=== PATIENT | female | born 1950 | race Caucasian/White ===

== ENCOUNTER → 2016-07-30 | Outpatient (CLI) | payer MEDICARE, OTHER ==
[~2016-07-30] MED LIST: CENTRUM SILVER1 EAC4 PO; CITRACAL+D(315M1 TAB PO; ELAVIL10 MG PO; ELAVIL25 MG PO; MYRBETRIQ50 MG PO; RESTASIS1 EACH OPHTH; VITAMIN D1000 UNIT PO
== END | disposition disaster alternative care site (69) ==
LOC: GBCOE 09:22
DX: Z12.31 Encounter for screening mammogram for malignant neoplasm of breast (principal)
CPT/HCPCS: G0202